=== PATIENT | female | born 1975 | race Caucasian/White ===

== ENCOUNTER 2020-08-04 15:37 | Emergency (ER) | payer OTHER | END 2020-08-04 16:37 | disposition home or self-care (01) | LOC: JVIRT 15:37 | DX: Z11.59 Encounter for screening for other viral diseases (principal) | CPT/HCPCS: Q3014-GT ==

== ENCOUNTER 2024-04-04 23:08 | Emergency (ER) | payer OTHER ==
[2024-04-04 23:19] VITALS: BP 144/97; PULSE 94; RESP 18; TEMP 97.8; BMI 30.7
[2024-04-04] MEDS ORDERED: ONDANSETRON *ODT* 4 MG TABLET ONE (23:40)
[2024-04-04] MEDS: ONDANSETRON *ODT* 4 MG TABLET SL ONE (23:42)
== END 2024-04-05 01:02 | disposition home or self-care (01) ==
LOC: FER 23:08
DX: F10.129 Alcohol abuse with intoxication, unspecified (principal); R11.10 Vomiting, unspecified; Y90.9 Presence of alcohol in blood, level not specified
CPT/HCPCS: 99283-25; Q0162